=== PATIENT | female | born 1995 | race African-American/Black ===

== ENCOUNTER 2020-07-30 05:03 | Emergency (ER) | payer BC, SELFPAY ==
--- NOTE | ~2020-07-30 | CT_ITS ---
EXAMINATION: CT chest abdomen pelvis w con DATE: 07/30/2020 06:51 INDICATION: Retrosternal chest pain TECHNIQUE: Computed tomography (CT) of the chest, abdomen, and pelvis was performed with 100 mL Omnip aque-350 intravenous contrast. Automated exposure control and iterative reconstruction technique were employed. The dose-length product was 2088.04 mGy-cm. COMPARISON: None FINDINGS: CHEST CT: Elevation of the right hemidiaphragm. Lungs are clear with no pneumonia or other pulmonary infiltrate s, pulmonary edema or pleural effusion. Heart size is normal. No pericardial effusion. Thoracic aorta is normal in caliber with no dissection. No pathologically enlarged thoracic lymphadenopathy. ABDOMEN/PELVIS CT: Diffuse hepatic steatosis with more focal fat at the ligamentum teres. Gallbladder, spleen, pancreas, bilateral adrenal glands and kidneys are normal. Bowels including the appendix are normal. 6.7 x 4.2 x 4.0 cm right adnexal cyst. Bladder, anteverted uterus and left adnexa are unremarkable. No free in traperitoneal gas or fluid. No pathologically enlarged abdominal or pelvic lymphadenopathy. Abdominal aorta and its major branch vessels are normal. Bones are unremarkable. IMPRESSION: 1. No acute cardiopulmonary disease or acute intra-abdominal/pelvic process. Reviewed, dictated and finalized at location A.
[2020-07-30 05:02] VITALS: BP 130/80; PULSE 83; RESP 28; TEMP 36.7; O2SAT 100
[2020-07-30] MEDS: LORazepam (*CRX) 0.5 MG TABLET 1 MG PO (05:13)
--- NOTE | 2020-07-30 05:13 | ECG_ITS ---
Measurements Intervals [place] Rate: 76 P: 30 NM: 140 QRS: 30 QRSD: 96 T: 44 QT: 384 QTc: 432 Interpretive Statements SINUS RHYTHM BASELINE WANDER- I, II, AVR, AVL, AVF BORDERLINE ECG Electronically Signed On 07-30-2020 10:27:40 CDT by Go Velazquez D.O.
[2020-07-30] MEDS: ONDANSETRON HCL ODT 4 MG TABLET PO (05:14)
--- NOTE | 2020-07-30 05:35 | ED.GENADULT ---
HPI - General Adult General Chief complaint: Nausea/Vomiting/Diarrhea <Monie Saleem MD - Last Filed: 07/30/20 07:09> Stated complaint: cp, vomiting after eating an edible <Monie Saleem MD - Last Filed: 07/30/20 07:09> Time Seen by Provider: 07/30/20 05:08 <Monie Saleem MD - Last Filed: 07/30/20 07:09> Source: patient, EMS and RN notes reviewed <Monie Saleem MD - Last Filed: 07/30/20 07:09> Mode of arrival: EMS <Monie Saleem MD - Last Filed: 07/30/20 07:09> Limitations: no limitations <Monie Saleem MD - Last Filed: 07/30/20 07:09> History of Present Illness HPI narrative: Patient is 25 years old -[place] female morbidly obese presents with epigastric and retrosternal pain, patient feels like her heart is racing, started 1 hour after having edible pot gummy at 8 PM last night. 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 Patient denies any fever, chills. Patient reports a lot of nausea and vomiting. <Monie Saleem MD - Last Filed: 07/30/20 07:09> Related Data Allergies/adverse reactions: Allergies Allergy/AdvReac Type Severity Reaction Status Date / Time No Known Allergies Allergy Verified 07/30/20 05:13 <Monie Saleem MD - Last Filed: 07/30/20 07:09> Review of Systems Review of Systems: Narrative: CONSTITUTIONAL: Denies fever, chills, or sweats. EYES: Denies visual changes, redness, or discharge. ENT: Denies rhinorrhea, congestion, sore throat, or otalgia. CARDIOVASCULAR: Denies chest pain, palpitations, or edema. RESPIRATORY: Denies cough or dyspnea. GASTROINTESTINAL: Gastric pain, nausea and vomiting GENITOURINARY: Denies dysuria or hematuria. SKIN: Denies rash or itching. MUSCULOSKELETAL: Denies back pain, joint pain, or myalgia. NEUROLOGIC: Denies headache, numbness, or weakness. PSYCHIATRIC: Denies anxiety or depression. <Monie Saleem MD - Last Filed: 07/30/20 07:09> Exam Narrative: Exam Narrative: General appearance: Well-developed, well-nourished, patient is very restless, keeps rolling all over the bed Skin: Normal color Head: Normocephalic, nontraumatic Eyes: Clear conjunctiva ENT: Oropharynx normal, ears normal, nose normal Neck: Supple, nontender Chest and respiratory: Airway patent, no respiratory distress, no accessory muscle use Heart: Regular rate/rhythm Abdomen: Soft, moderate tenderness epigastric area, no organomegaly, quiet bowel sounds Vascular: Normal peripheral pulses, normal capillary refill. Musculoskeletal: Normal range of motion, nontender back Neurologic: Alert and oriented ?3, PSYCHOLOGIST SOCIAL is normal as tested, no gross motor deficit <Monie Saleem MD - Last Filed: 07/30/20 07:09> Course Course Emergency Course: Stable <Monie Saleem MD - Last Filed: 07/30/20 07:09> Labs revieweed and unremarkable CT resulted and no pathology Patient checked and resting comfortably and has been up to toilet <Skinny Florence MD - Last Filed: 07/30/20 08:15> Vital Signs Vital signs: Vital Signs Temperature 36.7 C 07/30/20 05:02 Pulse Rate 83 07/30/20 05:02 Respiratory Rate 28 H 07/30/20 05:02 Blood Pressure 130/80 07/30/20 05:02 Pulse Oximetry 100 07/30/20 05:02 Temperature 36.7 C 07/30/20 05:02 Pulse Rate 83 07/30/20 05:02 Respiratory Rate 28 H 07/30/20 05:02 Blood Pressure 130/80 07/30/20 05:02 Pulse Oximetry 100 07/30/20 05:02 <Monie Saleem MD - Last Filed: 07/30/20 07:09> Vital Signs Temperature 36.7 C 07/30/20 05:02 Pulse Rate 83 07/30/20 05:02 Respiratory Rate 28 H 07/30/20 05:02 Blood Pressure 130/80 07/30/20 05:02 Pulse Oximetry 100 07/30/20 05:02 Temperature 36.7 C 0
[2020-07-30] MEDS: ONDANSETRON INJ 4 MG/2 ML VIAL IV PUSH (05:46)
[2020-07-30] MEDS: SODIUM CHLORIDE 0.9% IV 1,000 ML 999 ML IV CONT (05:46)
[2020-07-30] MEDS: HYDROmorphone HCL INJ (*CRX) 1 MG/ML SYR 0.5 MG IV PUSH (05:46)
[2020-07-30 06:04] LABS: Basophils Percent Auto 0.3 % (0.2-1.2); Hematocrit 41.8 % (37.0-47.0); Hemoglobin 13.9 g/dL (12.0-15.0); Immature Granulocyte Absolute 0.08 K/mm3 (0.00-0.031); Immature Granulocyte Percent A 0.8 % (0-0.5); Lymphocytes Percent Auto 20.2 % (18.3-44.2); Mean Corpuscular HGB Conc 33.3 g/dl (32-36); Mean Corpuscular Hemoglobin 27.1 pg (26-34); Mean Corpuscular Volume 81.5 fl (80-100); Mean Platelet Volume 11.1 fl (7.4-10.4); Monocytes Absolute Auto 0.6 K/mm3 (0.1-0.6); Neutrophils Absolute Auto 7.6 K/mm3 (1.3-6.7); Neutrophils Percent Auto 72.7 % (45.5-73.1); Platelet Count Result 259 k/mm3 (150-375); Red Blood Count 5.13 M/mm3 (4.2-5.4); White Blood Count 10.4 K/mm3 (4.5-10.0)
[2020-07-30 06:15] LABS: Alanine Aminotransferase 25 U/L (4-35); Albumin Level 4.7 g/dL (3.5-5.1); Alkaline Phosphatase 81 U/L (38-126); Anion Gap 10 mmol/L (8-16); Aspartate Amino Transferase 33 U/L (14-36); Bilirubin,Total 0.6 mg/dL (0.2-1.3); Blood Urea Nitrogen 9 mg/dL (7-17); Calcium 9.2 mg/dL (8.4-10.2); Carbon Dioxide 26 mmol/L (22-30); Chloride 103 mmol/L (98-107); Estimated CRCL calculation 172 ml/min; Estimated Glomerular Filt Rate > 60; Glucose 110 mg/dL (65-105); Lipase 53 U/L (23-300); Potassium 3.9 mmol/L (3.4-5.0); Sodium 139 mmol/L (137-145)
[2020-07-30 06:26] LABS: Troponin I < 0.012 ng/mL (0.000-0.034)
--- NOTE | 2020-07-30 07:52 | PC.NURSE ---
Patient ambulated to bathroom without difficulty and in no distress.
--- NOTE | 2020-07-30 08:36 | PC.NURSE ---
Patients ride called ([facility] [phone]) [facility] reports that he will call patient a lift at this time.
[2020-07-30 08:41] VITALS: BP 128/70; PULSE 80; RESP 18; O2SAT 100
== END 2020-07-30 08:46 | disposition home or self-care (01) ==
PROVIDERS: Emergency Provider Emergency Medicine
DX: R10.13 Epigastric pain (principal); E66.01 Morbid (severe) obesity due to excess calories; Z68.44 Body mass index [BMI] 60.0-69.9, adult; R94.31 Abnormal electrocardiogram [ECG] [EKG]
CPT/HCPCS: 36415; 71260; 74177; 80053; 81025; 83690; 84484; 85025; 93005; 96361; 96374; 96375; 99284; A9270; J1170; J2405; J7030; Q9967